=== PATIENT | female | born 1945 | race Caucasian/White ===

== ENCOUNTER 2017-01-02 11:08 | Outpatient (CLI) | payer MEDICARE, BC | END 2017-01-02 11:09 | disposition home or self-care (01) | DX: G47.33 Obstructive sleep apnea (adult) (pediatric) (principal); G47.00 Insomnia, unspecified | CPT/HCPCS: 99214; G0463 ==

== ENCOUNTER 2017-04-24 14:45 | Outpatient (CLI) | payer MEDICARE, BC | END 2017-04-24 14:46 | disposition home or self-care (01) | LOC: SC 14:45 | PROVIDERS: ATTEND Nurse Practitioner Family | DX: G47.33 Obstructive sleep apnea (adult) (pediatric) (principal) | CPT/HCPCS: 99214; G0463; 99212 ==

== ENCOUNTER 2017-06-12 09:34 | Outpatient (CLI) | payer MEDICARE, BC ==
[2017-06-12 18:51] LABS: BASOPHILS # (AUTO) 0.1 10^3/uL (0.0-0.1); EOSINOPHILS # (AUTO) 0.3 10^3/uL (0.0-0.7); EOSINOPHILS % (AUTO) 5.1 %; HCT - HEMATOCRIT 43.9 % (37.0-47.0); HGB - HEMOGLOBIN 14.5 g/dL (12.0-16.0); LYMPHOCYTES # (AUTO) 1.3 10^3/uL (1.5-3.5); LYMPHOCYTES % (AUTO) 18.9 %; MEAN CORPUSCULAR HEMOGLOBIN 31.4 pg (27.0-31.0); MEAN CORPUSCULAR VOLUME 95.2 fL (81.0-99.0); MEAN PLATELET VOLUME 8.2 fL (7.9-10.8); MONOCYTES # (AUTO) 0.4 10^3/uL (0.0-1.0); MONOCYTES % (AUTO) 6.4 %; NEUTROPHILS # (AUTO) 4.6 10^3/uL (1.5-6.6); NEUTROPHILS % (AUTO) 68.6 %; NUCLEATED RED BLOOD CELLS AUTO 0.2 /100WBC; RED BLOOD COUNT 4.61 10^6/uL (4.20-5.40); RED CELL DISTRIBUTION WIDTH 13.4 % (12.0-15.0); UNCORRECTED WHITE BLOOD COUNT 6.8 x10^3/uL; WHITE BLOOD COUNT 6.8 x10^3/uL (4.8-10.8)
[2017-06-12 19:18] LABS: ALBUMIN/GLOBULIN RATIO 1.3 (1.0-2.2); BILIRUBIN,TOTAL 0.6 mg/dL (0.2-1.0); BUN - BLOOD UREA NITROGEN 23 mg/dL (6-20); CALCIUM 9.5 mg/dL (8.5-10.3); CARBON DIOXIDE - CO2 28 mmol/L (21-32); CHLORIDE 97 mmol/L (101-111); CHOL/HDL RATIO 2.3 (<4.4); CHOLESTEROL 167 mg/dL; CREATININE 1.2 mg/dL (0.4-1.0); GFR - MDRD 44 (>89); GLUCOSE 259 mg/dL (70-100); HDL CHOLESTEROL 73 mg/dL; POTASSIUM 4.3 mmol/L (3.5-5.0); SODIUM 135 mmol/L (135-145); TOTAL PROTEIN 6.8 g/dL (6.7-8.2); TRIGLYCERIDES 114 mg/dL; VLDL CHOLESTEROL 23 mg/dL
[2017-06-12 20:15] LABS: HEMOGLOBIN A1C 1.5 g/dL
== END 2017-06-12 09:35 | disposition home or self-care (01) ==
LOC: LAB.F 09:34
PROVIDERS: ATTEND Physician Assistant Medical
DX: E11.65 Type 2 diabetes mellitus with hyperglycemia (principal); Z51.81 Encounter for therapeutic drug level monitoring
CPT/HCPCS: 36415; 80053; 80061; 83036; 85025

== ENCOUNTER 2017-06-12 13:42 | Outpatient (CLI) | payer MEDICARE, BC | END 2017-06-12 13:43 | disposition home or self-care (01) | LOC: SC 13:42 | PROVIDERS: ATTEND Nurse Practitioner Family | DX: G47.33 Obstructive sleep apnea (adult) (pediatric) (principal); E11.65 Type 2 diabetes mellitus with hyperglycemia; Z51.81 Encounter for therapeutic drug level monitoring | CPT/HCPCS: 36415; 80053; 80061; 83036; 85025; 99214; G0463; 99212 ==

== ENCOUNTER 2017-07-12 13:47 | Outpatient (CLI) | payer MEDICARE, BC | END 2017-07-12 13:48 | disposition home or self-care (01) | LOC: SC 13:47 | PROVIDERS: ATTEND Nurse Practitioner Family | DX: G47.33 Obstructive sleep apnea (adult) (pediatric) (principal) | CPT/HCPCS: 99214; G0463; 99212 ==

== ENCOUNTER 2017-10-11 09:19 | Outpatient (CLI) | payer MEDICARE, BC ==
[2017-10-11 17:52] LABS: CALCIUM 9.2 mg/dL (8.5-10.3); CREATININE 1.1 mg/dL (0.4-1.0)
[2017-10-11 18:23] LABS: HB2 TOTAL 15.6 g/dL; HEMOGLOBIN A1C 1.11 g/dL; HEMOGLOBIN A1C % 8.7 % (4.6-6.2)
== END 2017-10-11 09:20 | disposition home or self-care (01) ==
LOC: LAB.F 09:19
PROVIDERS: ATTEND Physician Assistant Medical
DX: Z51.81 Encounter for therapeutic drug level monitoring (principal); E11.65 Type 2 diabetes mellitus with hyperglycemia
CPT/HCPCS: 36415; 80048; 83036

== ENCOUNTER 2017-10-18 11:28 | Outpatient (CLI) | payer MEDICARE, BC | END 2017-10-18 11:29 | disposition home or self-care (01) | LOC: SC 11:28 | PROVIDERS: ATTEND Nurse Practitioner Family | DX: G47.33 Obstructive sleep apnea (adult) (pediatric) (principal) | CPT/HCPCS: 99214; G0463; 99212 ==

== ENCOUNTER 2017-12-19 14:45 | Outpatient (CLI) | payer MEDICARE, BC ==
[2017-12-19 17:49] LABS: BASOPHILS # (AUTO) 0.1 10^3/uL (0.0-0.1); BASOPHILS % (AUTO) 1.1 %; EOSINOPHILS # (AUTO) 0.5 10^3/uL (0.0-0.7); EOSINOPHILS % (AUTO) 7.3 %; HGB - HEMOGLOBIN 14.1 g/dL (12.0-16.0); LYMPHOCYTES # (AUTO) 1.4 10^3/uL (1.5-3.5); LYMPHOCYTES % (AUTO) 20.6 %; MEAN CORPUSCULAR VOLUME 93.9 fL (81.0-99.0); MEAN PLATELET VOLUME 7.8 fL (7.9-10.8); MONOCYTES # (AUTO) 0.4 10^3/uL (0.0-1.0); MONOCYTES % (AUTO) 5.9 %; NEUTROPHILS # (AUTO) 4.3 10^3/uL (1.5-6.6); NEUTROPHILS % (AUTO) 65.1 %; PLT - PLATELET COUNT 223 10^3/uL (130-450); RED BLOOD COUNT 4.54 10^6/uL (4.20-5.40); RED CELL DISTRIBUTION WIDTH 13.2 % (12.0-15.0); WHITE BLOOD COUNT 6.6 x10^3/uL (4.8-10.8)
[2017-12-19 17:52] LABS: CALCIUM 9.1 mg/dL (8.5-10.3)
[2017-12-19 17:58] LABS: HB2 TOTAL 15.3 g/dL; HEMOGLOBIN A1C 1.25 g/dL; HEMOGLOBIN A1C % 9.6 % (4.6-6.2)
== END 2017-12-19 14:46 | disposition home or self-care (01) ==
LOC: LAB.F 14:45
PROVIDERS: ATTEND Physician Assistant Medical
DX: E11.9 Type 2 diabetes mellitus without complications (principal); Z51.81 Encounter for therapeutic drug level monitoring
CPT/HCPCS: 36415; 80048; 83036; 85025

== ENCOUNTER 2018-01-02 14:47 | Outpatient (CLI) | payer MEDICARE, BC | END 2018-01-02 14:48 | disposition home or self-care (01) | LOC: SC 14:47 | PROVIDERS: ATTEND Nurse Practitioner Family | DX: G47.33 Obstructive sleep apnea (adult) (pediatric) (principal) | CPT/HCPCS: 99214; G0463; 99212 ==

== ENCOUNTER 2018-02-05 06:08 | Day surgery (SDC) | payer MEDICARE, BC ==
[2018-02-05] MEDS ORDERED: LACTATED RINGERS 1,000 ML IV ONE (06:50)
[2018-02-05] MEDS ORDERED: PROPOFOL 200 MG/20 ML VIAL IVP ONE (08:05)
[2018-02-05] MEDS ORDERED: LIDOCAINE-MPF 2% 5 ML VIAL IM ONE (08:05)
[2018-02-05 08:59] VITALS: BP 116/62
== END 2018-02-05 06:09 | disposition home or self-care (01) ==
LOC: SDS 06:08
PROVIDERS: ATTEND Surgery
PROC: 0DBP8ZX Excision of Rectum, Via Natural or Artificial Opening Endoscopic, Diagnostic (ICD-10-PCS; principal; 2018-02-05 07:30)
DX: Z12.11 Encounter for screening for malignant neoplasm of colon (principal); K62.1 Rectal polyp; K57.30 Diverticulosis of large intestine without perforation or abscess without bleeding; K64.8 Other hemorrhoids; E11.9 Type 2 diabetes mellitus without complications; Z86.718 Personal history of other venous thrombosis and embolism; Z79.01 Long term (current) use of anticoagulants; I10 Essential (primary) hypertension; Z79.84 Long term (current) use of oral hypoglycemic drugs; Z87.891 Personal history of nicotine dependence
CPT/HCPCS: 45380; J7120; 88305

== ENCOUNTER 2018-03-06 13:32 | Outpatient (CLI) | END 2018-03-06 13:33 | disposition home or self-care (01) | CPT/HCPCS: 99214; G0463 ==

== ENCOUNTER 2018-03-13 15:06 | Outpatient (CLI) | payer MEDICARE, BC ==
--- NOTE | 2018-03-14 14:49 | DEXA Report ---
Procedure Date: 03/13/2018 Accession Number: [id number] / [id number] Procedure: DEX - Dexa Spine and/or Hip CPT Code: FULL RESULT: EXAM: Dexa Spine and/or Hip DATE: 03/13/2018 3:54 PM CLINICAL HISTORY: SCREENING FOR OSTEOPOROSIS TECHNIQUE: Dual energy x-ray absorptiometry (DXA) was performed on a [employer] System. Regions measured are the AP Spine, femoral neck, and if needed forearm. COMPARISON: None. In accordance with the International Society for Clinical Densitometry (ISCD) guidelines, data from previous exams may be reanalyzed using current recommendations and techniques. This is done to allow a more accurate basis for comparison with the current study. FINDINGS: The data for the lumbar spine is as follows: BMD (g/cm/cm) T-SCORE Z-SCORE REGION L1 1.226 0.8 1.3 L2 1.517 2.6 3.2 L3 1.558 3.0 3.5 L4 1.615 3.5 4.0 TOTAL 1.471 2.4 2.9 NOTE: All evaluable vertebrae are used for classification The data for the hip is as follows: BMD (g/cm/cm) T-SCORE Z-SCORE REGION Neck 0.887 -1.1 -0.1 TOTAL 1.008 0.0 0.7 NOTE: The femoral neck or total proximal femur, whichever is lowest, is used for classification. IMPRESSION: THE WHO CLASSIFICATION BASED ON THE INTERNATIONAL REFERENCE STANDARD IS OSTEOPENIA. THE FRACTURE RISK IS INCREASED.. RECOMMENDATION: Patients with diagnosis of osteoporosis or osteopenia should have regular bone mineral density assessment. For those eligible for Medicare, routine testing is allowed once every 2 years. Testing frequency can be increased for patients who have rapidly progressing disease or for those who are receiving medical therapy to restore bone mass. COMMENT: World Health Organization (WHO) definitions for osteoporosis and osteopenia: NORMAL BMD: T-score at -1.0 or higher, fracture risk is low OSTEOPENIA BMD: T-score between -1.0 and -2.5, fracture risk is increased. OSTEOPOROSIS BMD: T-score at -2.5 or lower, fracture risk is high. National Osteoporosis Foundation recommends: 1. Obtain adequate dietary calcium (at least 1200 mg per day) and vitamin D (400-800 international units per day). 2. Participate, as appropriate, in regular weightbearing and muscle-strengthening exercise. 3. Avoid tobacco use and reduce alcohol and caffeine intake. 4. For more detailed information see the website at www.NOF.org.
== END 2018-03-13 15:07 | disposition home or self-care (01) ==
LOC: DI 15:06
PROVIDERS: ATTEND Physician Assistant Medical
DX: Z13.820 Encounter for screening for osteoporosis (principal); M85.88 Other specified disorders of bone density and structure, other site; Z78.0 Asymptomatic menopausal state
CPT/HCPCS: 77080

== ENCOUNTER 2018-03-13 15:07 | Outpatient (CLI) | payer MEDICARE, BC ==
--- NOTE | 2018-03-15 13:43 | Mammography Report ---
Procedure Date: 03/13/2018 Accession Number: [id number] / [id number] Procedure: AVELINO - Screening Mammo Dig Bilat CPT Code: FULL RESULT: EXAM: Screening Mammo Dig Bilat DATE: 03/13/2018 4:14 PM CLINICAL HISTORY: Routine screening TECHNIQUE: Bilateral CC, exaggerated CC and MLO views were obtained. COMPARISON: 10/15/2015, 03/14/2012, and 12/21/2010 FINDINGS: There are scattered fibroglandular densities. There is been no significant interval change. No suspicious masses, clustered microcalcifications, skin thickening, or regions of architectural distortion are identified. Scattered benign appearing calcifications as before. IMPRESSION: Benign findings RECOMMENDATION: Routine annual screening unless otherwise clinically indicated. BIRADS CATEGORY 2: Benign findings STANDARD QUALIFYING STATEMENTS: 1. This examination was reviewed with the aid of Computer-Aided Detection (CAD). 2. A negative or benign imaging report should not delay biopsy if clinically suspicious findings are present. Consider surgical consultation if warrented. More than 5% of cancers are not identified by imaging. 3. Dense breasts may obscure an underlying neoplasm.
== END 2018-03-13 15:08 | disposition home or self-care (01) ==
LOC: DI 15:07
PROVIDERS: ATTEND Physician Assistant Medical
DX: Z12.31 Encounter for screening mammogram for malignant neoplasm of breast (principal)
CPT/HCPCS: 77067

== ENCOUNTER 2018-03-14 08:00 | Outpatient (CLI) | payer MEDICARE, BC ==
[2018-03-14 19:15] LABS: HB2 TOTAL 15.6 g/dL; HEMOGLOBIN A1C 1.26 g/dL; HEMOGLOBIN A1C % 9.5 % (4.6-6.2)
== END 2018-03-14 08:01 ==
LOC: LAB.F 08:00
PROVIDERS: ATTEND Physician Assistant Medical
DX: E11.65 Type 2 diabetes mellitus with hyperglycemia (principal)
CPT/HCPCS: 36415; 83036

== ENCOUNTER 2018-04-25 12:03 | Outpatient (CLI) | payer MEDICARE, BC ==
[2018-04-25 18:03] LABS: HB2 TOTAL 14.9 g/dL; HEMOGLOBIN A1C 1.17 g/dL; HEMOGLOBIN A1C % 9.3 % (4.6-6.2)
== END 2018-04-25 12:04 | disposition home or self-care (01) ==
LOC: LAB.F 12:03
PROVIDERS: ATTEND Physician Assistant Medical
DX: E11.40 Type 2 diabetes mellitus with diabetic neuropathy, unspecified (principal)
CPT/HCPCS: 36415; 80048; 82043; 83036

== ENCOUNTER 2018-04-26 08:00 | Outpatient (CLI) | payer MEDICARE, BC | END 2018-04-26 08:01 | disposition home or self-care (01) | LOC: LAB.F 08:00 | PROVIDERS: ATTEND Physician Assistant Medical | DX: E11.40 Type 2 diabetes mellitus with diabetic neuropathy, unspecified (principal) | CPT/HCPCS: 82043 ==

== ENCOUNTER 2018-05-29 13:02 | Outpatient (CLI) | payer MEDICARE, BC | END 2018-05-29 13:03 | disposition home or self-care (01) | LOC: SC 13:02 | PROVIDERS: ATTEND Nurse Practitioner Family | DX: G47.33 Obstructive sleep apnea (adult) (pediatric) (principal) | CPT/HCPCS: 99214; G0463; 99212 ==

== ENCOUNTER 2018-07-10 13:26 | Outpatient (CLI) | payer MEDICARE, BC | END 2018-07-10 13:27 | disposition home or self-care (01) | LOC: SC 13:26 | PROVIDERS: ATTEND Nurse Practitioner Family | DX: G47.33 Obstructive sleep apnea (adult) (pediatric) (principal); R00.0 Tachycardia, unspecified | CPT/HCPCS: 99214; G0463; 99212 ==

== ENCOUNTER 2018-07-25 11:56 | Outpatient (CLI) | payer MEDICARE, BC ==
[2018-07-25 18:19] LABS: CALCIUM 8.8 mg/dL (8.5-10.3); CREATININE 1.1 mg/dL (0.4-1.0)
[2018-07-25 18:53] LABS: HB2 TOTAL 14.1 g/dL; HEMOGLOBIN A1C 1.03 g/dL; HEMOGLOBIN A1C % 8.8 % (4.6-6.2)
== END 2018-07-25 23:59 | disposition home or self-care (01) ==
LOC: LAB.F 11:56
PROVIDERS: ATTEND Physician Assistant Medical
DX: E11.40 Type 2 diabetes mellitus with diabetic neuropathy, unspecified (principal)
CPT/HCPCS: 36415; 80048; 83036

== ENCOUNTER 2018-12-21 12:59 | Outpatient (CLI) | payer MEDICARE, BC ==
[2018-12-21 17:36] LABS: BUN - BLOOD UREA NITROGEN 34 mg/dL (6-20); CALCIUM 9.7 mg/dL (8.5-10.3); CARBON DIOXIDE - CO2 27 mmol/L (21-32); CHLORIDE 99 mmol/L (101-111); CHOL/HDL RATIO 2.6 (<4.4); CHOLESTEROL 181 mg/dL; CREATININE 1.1 mg/dL (0.4-1.0); GFR - MDRD 49 (>89); GLUCOSE 242 mg/dL (70-100); HDL CHOLESTEROL 69 mg/dL; LDL CHOLESTEROL,CALCULATED 88 mg/dL; LDL/HDL RATIO 1.3 (<4.4); SODIUM 135 mmol/L (135-145); VLDL CHOLESTEROL 24 mg/dL
[2018-12-21 17:46] LABS: HB2 TOTAL 15.5 g/dL; HEMOGLOBIN A1C 1.42 g/dL; HEMOGLOBIN A1C % 10.5 % (4.6-6.2)
== END 2018-12-21 13:00 | disposition home or self-care (01) ==
LOC: LAB.F 12:59
PROVIDERS: ATTEND Physician Assistant Medical
DX: E11.42 Type 2 diabetes mellitus with diabetic polyneuropathy (principal)
CPT/HCPCS: 36415; 80048; 80061; 82043; 83036; 83721

== ENCOUNTER 2019-01-16 12:46 | Outpatient (CLI) | payer MEDICARE, BC | END 2019-01-16 12:47 | disposition home or self-care (01) | LOC: SC 12:46 | PROVIDERS: ATTEND Nurse Practitioner Family | DX: G47.33 Obstructive sleep apnea (adult) (pediatric) (principal) | CPT/HCPCS: 99214; G0463; 99212 ==

== ENCOUNTER 2019-04-15 09:13 | Outpatient (CLI) | payer MEDICARE, BC ==
[2019-04-15 17:47] LABS: BASOPHILS # (AUTO) 0.1 10^3/uL (0.0-0.1); EOSINOPHILS # (AUTO) 0.4 10^3/uL (0.0-0.7); EOSINOPHILS % (AUTO) 5.2 %; LYMPHOCYTES # (AUTO) 1.1 10^3/uL (1.5-3.5); LYMPHOCYTES % (AUTO) 13.7 %; MEAN CORPUSCULAR HEMOGLOBIN 31.5 pg (27.0-31.0); MEAN CORPUSCULAR HGB CONC 31.5 g/dL (32.0-36.0); MEAN PLATELET VOLUME 10.1 fL (7.9-10.8); MONOCYTES # (AUTO) 0.5 10^3/uL (0.0-1.0); NEUTROPHILS # (AUTO) 5.8 10^3/uL (1.5-6.6); NEUTROPHILS % (AUTO) 73.7 %; PLT - PLATELET COUNT 274 10^3/uL (130-450); RED BLOOD COUNT 4.44 10^6/uL (4.20-5.40); RED CELL DISTRIBUTION WIDTH 13.7 % (12.0-15.0); WHITE BLOOD COUNT 7.8 x10^3/uL (4.8-10.8)
[2019-04-15 19:18] LABS: AMYLASE 29 U/L (28-100); BUN - BLOOD UREA NITROGEN 21 mg/dL (6-20); CALCIUM 9.5 mg/dL (8.5-10.3); CARBON DIOXIDE - CO2 26 mmol/L (21-32); CHLORIDE 101 mmol/L (101-111); CHOL/HDL RATIO 2.4 (<4.4); CHOLESTEROL 175 mg/dL; CREATININE 1.2 mg/dL (0.4-1.0); GFR - MDRD 44 (>89); GLUCOSE 227 mg/dL (70-100); HDL CHOLESTEROL 73 mg/dL; LDL CHOLESTEROL,CALCULATED 79 mg/dL; LDL/HDL RATIO 1.1 (<4.4); LIPASE 24 U/L (22-51); SODIUM 137 mmol/L (135-145); VLDL CHOLESTEROL 23 mg/dL
[2019-04-15 19:22] LABS: HB2 TOTAL 14.8 g/dL; HEMOGLOBIN A1C 1.03 g/dL; HEMOGLOBIN A1C % 8.5 % (4.6-6.2)
== END 2019-04-15 09:14 | disposition home or self-care (01) ==
LOC: LAB.S 09:13
PROVIDERS: ATTEND Physician Assistant Medical
DX: E11.40 Type 2 diabetes mellitus with diabetic neuropathy, unspecified (principal); R68.81 Early satiety; R11.2 Nausea with vomiting, unspecified
CPT/HCPCS: 36415; 80048; 80061; 82150; 83036; 83690; 83721; 85025

== ENCOUNTER 2019-05-28 14:38 | Outpatient (CLI) | payer MEDICARE, BC ==
[2019-05-28 18:47] LABS: BASOPHILS # (AUTO) 0.1 10^3/uL (0.0-0.1); BASOPHILS % (AUTO) 0.7 %; EOSINOPHILS # (AUTO) 0.2 10^3/uL (0.0-0.7); EOSINOPHILS % (AUTO) 2.2 %; HGB - HEMOGLOBIN 14.4 g/dL (12.0-16.0); LYMPHOCYTES # (AUTO) 1.3 10^3/uL (1.5-3.5); LYMPHOCYTES % (AUTO) 14.3 %; MEAN CORPUSCULAR HEMOGLOBIN 32.1 pg (27.0-31.0); MEAN CORPUSCULAR HGB CONC 32.7 g/dL (32.0-36.0); MEAN CORPUSCULAR VOLUME 98.4 fL (81.0-99.0); MEAN PLATELET VOLUME 10.4 fL (7.9-10.8); MONOCYTES # (AUTO) 0.5 10^3/uL (0.0-1.0); MONOCYTES % (AUTO) 5.6 %; NEUTROPHILS % (AUTO) 76.8 %; PLT - PLATELET COUNT 315 10^3/uL (130-450); RED BLOOD COUNT 4.48 10^6/uL (4.20-5.40); WHITE BLOOD COUNT 9.1 x10^3/uL (4.8-10.8)
[2019-05-28 18:49] LABS: CALCIUM 10.1 mg/dL (8.5-10.3); CREATININE 1.6 mg/dL (0.4-1.0)
[2019-05-28 18:50] LABS: CREATININE,URINE 215.9 mg/dL; PROTEIN/CREATININE RATIO,URINE 0.2 (<=0.2)
== END 2019-05-28 14:39 | disposition home or self-care (01) ==
LOC: LAB.S 14:38
PROVIDERS: ATTEND Internal Medicine Nephrology
DX: N05.9 Unspecified nephritic syndrome with unspecified morphologic changes (principal); D70.9 Neutropenia, unspecified; D63.1 Anemia in chronic kidney disease; R80.9 Proteinuria, unspecified
CPT/HCPCS: 36415; 80048; 82570; 84156; 85025

== ENCOUNTER 2019-06-03 16:57 | Outpatient (CLI) | payer MEDICARE, BC ==
--- NOTE | 2019-06-04 09:18 | Ultrasound Report ---
Reason: STAGE 3 KIDNEY DISEASE Procedure Date: 06/03/2019 Accession Number: [id number] / [id number] Procedure: US - Retroperitoneal CPT Code: FULL RESULT: EXAM: RENAL ULTRASOUND EXAM DATE: 06/03/2019 05:50 PM. CLINICAL HISTORY: STAGE 3 KIDNEY DISEASE. COMPARISON: None. TECHNIQUE: Real-time scanning was performed with static images obtained. FINDINGS: Study limited by patient body habitus. Right Kidney: 9.8 x 4.9 x 6.1 cm. Grossly unremarkable echotexture with no stones, contour-deforming masses, or hydronephrosis. Left Kidney: 9.4 x 6.8 x 5.7 cm. Grossly unremarkable echotexture with no stones, contour-deforming masses, or hydronephrosis. Bladder: Bilateral jets are not seen. The prevoid bladder volume was 29 cc. The postvoid bladder volume was not assessed. Other: None. IMPRESSION: Limited normal renal ultrasound. RADIA
== END 2019-06-03 16:58 | disposition home or self-care (01) ==
LOC: DI 16:57
PROVIDERS: ATTEND Internal Medicine Nephrology
DX: N18.3 Chronic kidney disease, stage 3 (moderate) (principal)
CPT/HCPCS: 76770

== ENCOUNTER 2019-07-29 11:20 | Outpatient (CLI) | payer MEDICARE, BC ==
[2019-07-29 18:24] LABS: CALCIUM 9.2 mg/dL (8.5-10.3); CREATININE 1.2 mg/dL (0.4-1.0)
== END 2019-07-29 11:21 | disposition home or self-care (01) ==
LOC: LAB.S 11:20
PROVIDERS: ATTEND Internal Medicine Nephrology
DX: N05.9 Unspecified nephritic syndrome with unspecified morphologic changes (principal)
CPT/HCPCS: 36415; 80048

== ENCOUNTER 2019-08-28 10:45 | Outpatient (CLI) | payer MEDICARE, BC ==
[2019-08-28 17:09] LABS: BASOPHILS # (AUTO) 0.1 10^3/uL (0.0-0.1); BASOPHILS % (AUTO) 1.1 %; EOSINOPHILS # (AUTO) 0.3 10^3/uL (0.0-0.7); EOSINOPHILS % (AUTO) 5.1 %; HGB - HEMOGLOBIN 13.5 g/dL (12.0-16.0); LYMPHOCYTES # (AUTO) 1.6 10^3/uL (1.5-3.5); LYMPHOCYTES % (AUTO) 23.8 %; MEAN CORPUSCULAR HEMOGLOBIN 30.6 pg (27.0-31.0); MEAN CORPUSCULAR HGB CONC 31.5 g/dL (32.0-36.0); MEAN CORPUSCULAR VOLUME 97.1 fL (81.0-99.0); MEAN PLATELET VOLUME 10.6 fL (7.9-10.8); MONOCYTES # (AUTO) 0.4 10^3/uL (0.0-1.0); MONOCYTES % (AUTO) 5.9 %; NEUTROPHILS # (AUTO) 4.3 10^3/uL (1.5-6.6); NEUTROPHILS % (AUTO) 63.8 %; PLT - PLATELET COUNT 248 10^3/uL (130-450); RED BLOOD COUNT 4.41 10^6/uL (4.20-5.40); RED CELL DISTRIBUTION WIDTH 12.9 % (12.0-15.0); WHITE BLOOD COUNT 6.7 x10^3/uL (4.8-10.8)
[2019-08-28 17:57] LABS: CREATININE,URINE 180.5 mg/dL; MICROALBUM/CREATININE RATIO,UR 14.4 ug/mg (<30.0); MICROALBUMIN,URINE 2.6 mg/dL (0-300.0)
[2019-08-28 17:58] LABS: CALCIUM 9.2 mg/dL (8.5-10.3); CREATININE 1.1 mg/dL (0.4-1.0)
[2019-08-28 18:26] LABS: HB2 TOTAL 13.8 g/dL; HEMOGLOBIN A1C 0.89 g/dL; HEMOGLOBIN A1C % 8.1 % (4.6-6.2)
== END 2019-08-28 10:46 | disposition home or self-care (01) ==
LOC: LAB.S 10:45
PROVIDERS: ATTEND Physician Assistant Medical
DX: E11.40 Type 2 diabetes mellitus with diabetic neuropathy, unspecified (principal); Z79.01 Long term (current) use of anticoagulants; I48.91 Unspecified atrial fibrillation; Z51.81 Encounter for therapeutic drug level monitoring
CPT/HCPCS: 36415; 80048; 82043; 82570; 83036; 85025

== ENCOUNTER 2019-09-27 11:10 | Outpatient (CLI) | payer MEDICARE, BC ==
[2019-09-27 18:06] LABS: CALCIUM 9.7 mg/dL (8.5-10.3); CREATININE 1.2 mg/dL (0.4-1.0)
--- NOTE | 2019-09-28 06:45 | XRAY Report ---
Reason: PULMONARY NODULE Procedure Date: 09/27/2019 Accession Number: [id number] / [id number] Procedure: XRS - Chest 2 View X-Ray CPT Code: 00219 Final Report FULL RESULT: EXAM: CHEST RADIOGRAPHY EXAM DATE: 09/27/2019 11:22 AM. CLINICAL HISTORY: PULMONARY NODULE. COMPARISON: None. TECHNIQUE: 2 views. FINDINGS: The aorta is mildly tortuous. The heart size is normal. The lungs are clear. No pleural effusion or pneumothorax is seen. Mild degenerative changes are seen in the thoracic spine. IMPRESSION: No focal consolidation. RADIA
== END 2019-09-27 11:11 | disposition home or self-care (01) ==
LOC: DI.S 11:10
PROVIDERS: ATTEND Physician Assistant Medical
DX: R91.1 Solitary pulmonary nodule (principal); E11.40 Type 2 diabetes mellitus with diabetic neuropathy, unspecified
CPT/HCPCS: 36415; 71046; 80048

== ENCOUNTER 2019-12-04 08:59 | Outpatient (CLI) | payer MEDICARE, BC ==
[2019-12-04 17:39] LABS: HB2 TOTAL 14.8 g/dL; HEMOGLOBIN A1C 0.91 g/dL; HEMOGLOBIN A1C % 7.8 % (4.6-6.2)
[2019-12-04 17:40] LABS: CALCIUM 9.4 mg/dL (8.5-10.3); CREATININE 1.1 mg/dL (0.4-1.0)
== END 2019-12-04 09:00 | disposition home or self-care (01) ==
LOC: LAB.S 08:59
PROVIDERS: ATTEND Physician Assistant Medical
DX: E11.29 Type 2 diabetes mellitus with other diabetic kidney complication (principal)
CPT/HCPCS: 36415; 80048; 83036

== ENCOUNTER 2020-01-30 17:55 | Outpatient (CLI) | payer MEDICARE, BC | END 2020-01-30 17:56 | disposition home or self-care (01) | LOC: COV 17:55 | PROVIDERS: ATTEND Family Medicine | DX: J02.9 Acute pharyngitis, unspecified (principal) | CPT/HCPCS: 81599 ==

== ENCOUNTER 2020-03-31 10:42 | Outpatient (CLI) | payer MEDICARE, BC ==
[2020-03-31 15:05] LABS: CALCIUM 9.3 mg/dL (8.5-10.3); CREATININE 1.2 mg/dL (0.4-1.0)
[2020-03-31 15:20] LABS: CREATININE,URINE 173.8 mg/dL; MICROALBUM/CREATININE RATIO,UR 16.1 ug/mg (<30.0); MICROALBUMIN,URINE 2.8 mg/dL (0-300.0)
[2020-03-31 15:53] LABS: HB2 TOTAL 14.6 g/dL; HEMOGLOBIN A1C 0.96 g/dL; HEMOGLOBIN A1C % 8.2 % (4.6-6.2)
== END 2020-03-31 10:43 | disposition home or self-care (01) ==
LOC: LAB.S 10:42
PROVIDERS: ATTEND Physician Assistant
DX: E11.29 Type 2 diabetes mellitus with other diabetic kidney complication (principal)
CPT/HCPCS: 36415; 80048; 82043; 82570; 83036

== ENCOUNTER 2020-06-16 14:05 | Outpatient (CLI) | payer MEDICARE, BC | END 2020-06-16 23:59 | disposition home or self-care (01) | LOC: RT 14:05 | PROVIDERS: ATTEND Internal Medicine | DX: I48.0 Paroxysmal atrial fibrillation (principal) | CPT/HCPCS: 93005 ==

== ENCOUNTER 2020-07-20 15:03 | Outpatient (CLI) | payer MEDICARE, BC ==
[2020-07-20 20:34] LABS: HEMOGLOBIN A1c% 8.9 % (4.27-6.07)
== END 2020-07-20 15:04 | disposition home or self-care (01) ==
LOC: LAB.S 15:03
PROVIDERS: ATTEND Physician Assistant
DX: E11.29 Type 2 diabetes mellitus with other diabetic kidney complication (principal)
CPT/HCPCS: 36415; 83036

== ENCOUNTER 2020-08-08 08:00 | Outpatient (CLI) | payer MEDICARE, BC ==
--- NOTE | 2020-08-08 13:29 | XRAY Report ---
PROCEDURE: Ribs w/PA Chest LT INDICATIONS: CONTUSION OF LEFT FRONTAL WALL THORAX TECHNIQUE: 3 views of the left ribs were acquired, along with a single view chest. COMPARISON: 09.27.19 FINDINGS: Surgical changes and devices: None. Bones and chest wall: No fractures or dislocations. No suspicious bony lesions. Overlying soft tis sues appear unremarkable. Lungs and pleura: No pleural effusions or pneumothorax. Lungs appear clear. Mediastinum: Mediastinal contours appear normal. Heart size is normal. IMPRESSION: No acute fracture. No osseous lesion. If symptoms and/or clinical suspicion for pathology continue, f urther assessment with repeat plain films, or advanced imaging (e.g., CT, MRI, or bone scan) is recom mended for further assessment. Reviewed by: Cyndy Barahona MD on 08/08/2020 1:28 PM PST Approved by: Cyndy Barahona MD on 08/08/2020 1:28 PM PST Station ID: [id number]
== END 2020-08-08 23:59 ==
LOC: DI.S 08:00
PROVIDERS: ATTEND Emergency Medicine
DX: S20.212A Contusion of left front wall of thorax, initial encounter (principal)

== ENCOUNTER 2021-01-12 09:39 | Outpatient (CLI) | payer MEDICARE, BC ==
[2021-01-12 14:14] LABS: BASOPHILS # (AUTO) 0.1 10^3/uL (0.0-0.1); BASOPHILS % (AUTO) 0.7 %; EOSINOPHILS # (AUTO) 0.2 10^3/uL (0.0-0.7); EOSINOPHILS % (AUTO) 2.3 %; HCT - HEMATOCRIT 43.5 % (37.0-47.0); HGB - HEMOGLOBIN 13.9 g/dL (12.0-16.0); LYMPHOCYTES # (AUTO) 1.3 10^3/uL (1.5-3.5); LYMPHOCYTES % (AUTO) 13.9 %; MEAN CORPUSCULAR HEMOGLOBIN 31.3 pg (27.0-31.0); MEAN PLATELET VOLUME 10.4 fL (7.9-10.8); MONOCYTES # (AUTO) 0.6 10^3/uL (0.0-1.0); MONOCYTES % (AUTO) 6.1 %; NEUTROPHILS # (AUTO) 7.3 10^3/uL (1.5-6.6); NEUTROPHILS % (AUTO) 76.7 %; PLT - PLATELET COUNT 282 10^3/uL (130-450); RED BLOOD COUNT 4.44 10^6/uL (4.20-5.40); RED CELL DISTRIBUTION WIDTH 12.8 % (12.0-15.0); WHITE BLOOD COUNT 9.6 x10^3/uL (4.8-10.8)
[2021-01-12 15:27] LABS: ALBUMIN 3.8 g/dL (3.2-5.5); ALBUMIN/GLOBULIN RATIO 1.2 (1.0-2.2); ALKALINE PHOSPHATASE 104 IU/L (42-121); ALT ALANINE AMINOTRANSFERASE 22 IU/L (10-60); AST ASPARTATE AMINOTRANSFERASE 23 IU/L (10-42); BILIRUBIN,TOTAL 0.6 mg/dL (0.2-1.0); BUN - BLOOD UREA NITROGEN 62 mg/dL (6-20); CALCIUM 9.5 mg/dL (8.5-10.3); CARBON DIOXIDE - CO2 24 mmol/L (21-32); CHLORIDE 97 mmol/L (101-111); CHOL/HDL RATIO 1.9 (<4.4); CHOLESTEROL 138 mg/dL; CREATININE 1.6 mg/dL (0.4-1.0); GFR - MDRD 32 (>89); GLUCOSE 284 mg/dL (70-100); HDL CHOLESTEROL 74 mg/dL; LDL CHOLESTEROL,CALCULATED 38 mg/dL; LDL/HDL RATIO 0.5 (<4.4); POTASSIUM 5.1 mmol/L (3.5-5.0); SODIUM 133 mmol/L (135-145); TOTAL PROTEIN 7.1 g/dL (6.7-8.2); TRIGLYCERIDES 129 mg/dL; VLDL CHOLESTEROL 26 mg/dL
[2021-01-12 15:34] LABS: CREATININE,URINE 154.2 mg/dL; MICROALBUM/CREATININE RATIO,UR 12.3 ug/mg (<30.0); MICROALBUMIN,URINE 1.9 mg/dL (0-300.0)
[2021-01-12 15:35] LABS: THYROID STIMULATING HORMONE 2.77 uIU/mL (0.34-5.60)
[2021-01-12 19:32] LABS: ESTIMATED AVERAGE GLUCOSE 229 mg/dL (70-100); HEMOGLOBIN A1c% 9.6 % (4.27-6.07)
== END 2021-01-12 09:40 | disposition home or self-care (01) ==
LOC: LAB.S 09:39
PROVIDERS: ATTEND Physician Assistant
DX: I48.0 Paroxysmal atrial fibrillation (principal); R19.7 Diarrhea, unspecified; Z51.81 Encounter for therapeutic drug level monitoring; Z79.01 Long term (current) use of anticoagulants; E11.29 Type 2 diabetes mellitus with other diabetic kidney complication; I10 Essential (primary) hypertension; E11.42 Type 2 diabetes mellitus with diabetic polyneuropathy
CPT/HCPCS: 36415; 80053; 80061; 82043; 82570; 83036; 83721; 84443; 85025

== ENCOUNTER 2021-02-11 | Outpatient (CLI) | payer MEDICARE, BC | END 2021-02-11 09:34 | disposition home or self-care (01) | CPT/HCPCS: 93005 ==

== ENCOUNTER 2021-04-07 17:50 | Outpatient (CLI) | payer MEDICARE, BC | END 2021-04-07 17:51 | disposition critical access hospital (66) | LOC: EMS 17:50 | DX: R11.2 Nausea with vomiting, unspecified (principal); R53.1 Weakness; R06.02 Shortness of breath; R50.9 Fever, unspecified; R63.0 Anorexia | CPT/HCPCS: A0425; A0429 ==

== ENCOUNTER 2021-04-07 17:52 | Emergency (ER) | payer MEDICARE, BC ==
[2021-04-07] MEDS ORDERED: SODIUM CHLORIDE 0.9% 1,000 ML IV STA (18:14)
[2021-04-07] MEDS ORDERED: ONDANSETRON 4 MG/2 ML VIAL IVP STA (18:14)
[2021-04-07] MEDS ORDERED: FAMOTIDINE 20 MG/2 ML VIAL IVP STA (18:14)
--- NOTE | 2021-04-07 18:16 | ED Physician Documentation ---
PD HPI NVD - Stated complaint Stated Complaint: FLU LIKE SX - Chief complaint Chief Complaint: Abd Pain - History obtained from History obtained from: Patient - History of Present Illness Timing - onset: How many days ago (3) Timing - duration: Days (3) Timing - details: Abrupt onset, Still present Associated symptoms: Other (nausea with vomiting for 3 days. No diarrhea. Intermittent abd cramps but no consistent pain.). No: Fever, Abdominal pain, Chest pain Contributing factors: Diabetes. No: Sick contact, Bad food, Alcohol use Improved by: No: Vomiting Worsened by: Eating Similar symptoms before: No diagnosis (possible gastroparesis, with EGD and US/labs last year evaluating milder episodes.) Recently seen: Not recently seen, Other (COVID vaccines in October.) Review of Systems Constitutional: denies: Fever, Chills Nose: denies: Rhinorrhea / runny nose, Congestion Throat: denies: Sore throat Respiratory: reports: Cough (mild nonproductive) GI: reports: Nausea, Vomiting. denies: Abdominal Swelling, Constipation, Diarrhea : denies: Dysuria, Frequency Neurologic: reports: Generalized weakness. denies: Near syncope, Headache Endocrine: denies: Weight loss Immunocompromised: denies: Immunocompromised PD PAST MEDICAL HISTORY - Past Medical History Cardiovascular: Hypertension, Deep vein thrombosis Respiratory: None Endocrine/Autoimmune: Type 2 diabetes GI: None : None HEENT: None Psych: Depression Musculoskeletal: Osteoarthritis Derm: None - Past Surgical History General: Colonoscopy Ortho: Other - Present Medications Home Medications: Ambulatory Orders Medication Instructions Recorded Confirmed Lisinopril 20 mg PO DAILY 11/06/15 11/09/15 Metformin HCl 1,000 mg PO BID 11/06/15 11/09/15 Ropinirole HCl [Requip] 1 mg PO BID 11/06/15 11/09/15 Bupropion HCl [Wellbutrin Xl] 300 mg PO DAILY 11/09/15 11/09/15 Glipizide [Glipizide ER] 5 mg PO 02/02/18 Famotidine [Pepcid] 20 mg PO DAILY #15 tablet 04/07/21 Ondansetron Odt [Zofran] 4 mg TL Q6H PRN #10 tablet 04/07/21 - Allergies Allergies/Adverse Reactions: Allergies Allergy/AdvReac Type Severity Reaction Status Date / Time No Known Drug Allergies Allergy Verified 04/07/21 18:07 PD ED PE NORMAL - Vitals Vital signs reviewed: Yes - General General: Alert and oriented X 3, No acute distress, Well developed/nourished - HEENT HEENT: Pharynx benign. No: Moist mucous membranes - Neck Neck: Supple, no meningeal sign, No adenopathy - Cardiac Cardiac: RRR, No murmur - Respiratory Respiratory: Clear bilaterally - Abdomen Abdomen: Soft, Non tender, Non distended, No organomegaly. No: Normal bowel sounds (diminished) - Female Female : Deferred - Rectal Rectal: Deferred - Back Back: No CVA TTP - Derm Derm: Normal color, Warm and dry - Extremities Extremities: No tenderness to palpate, Normal ROM s pain, No edema, No calf tenderness / cord - Neuro Neuro: Alert and oriented X 3, No motor deficit, Normal speech Results - Vitals Vitals: Vital Signs - 24 hr 04/07/21 04/07/21 04/07/21 18:03 18:32 19:37 Temperature 37.6 C Heart Rate 83 81 84 Respiratory 20 16 14 Rate Blood Pressure 132/68 H 133/49 H 134/65 H O2 Saturation 97 97 98 Oxygen O2 Source Room air - Labs Labs: Laboratory Tests 04/07/21 04/07/21 04/07/21 18:30 18:30 18:30 WBC 14.2 H RBC 4.40 Hgb 13.9 Hct 42.2 MCV 95.9 MCH 31.6 H MCHC 32.9 RDW 12.4 Plt Count 207 MPV 9.1 Neut # (Auto) 12.8 H Lymph # (Auto) 0.7 L [place] # (Auto) 0.6 Eos # (Auto) 0.0 Baso # (Auto) 0.1 Absolute Nucleated RBC 0.00 Nucleated RBC % 0.0 Sodium 136 Potassium 3.9 Chloride 98 L Carbon Dioxide 27 Anion Gap 11.0 BUN 21 H Creatinine 1.0 Estimated GFR (MDRD) 54 L Glucose 268 H Lactic Acid 1.5 Calcium 9.3 Magnesium 1.8 Total Bilirubin 1.0 AST 14 ALT 17 Alkaline Phosphatase 67 Total Protein 7.4 Albumin 3.6 Globulin 3.8 Albumin/Globulin Ratio 0.9 L Lipase 19 L Serum Ketones NEGATIVE PD MEDICAL DECISION MAKING - ED course Complexity details: reviewed results, re-evaluated patient (feeling much better with fluids and meds. ), considered differential, d/w patient Departure - Departure Disposition: 01 Home, Self Care Clinical Impression: Dehydration, Gastroparesis diabeticorum Nausea and vomiting Qualifiers: Vomiting type: unspecified Vomiting Intractability: non-intractable Qualified Code(s): R11.2 - Nausea with vomiting, unspecified Condition: Stable Record reviewed to determine appropriate education?: Yes Instructions: ED Nausea Vomiting Follow-Up: GAUDENCIO MEHTA PA-C [Primary Care Provider] - Prescriptions: Famotidine [Pepcid] 20 mg PO DAILY #15 tablet Ondansetron Odt [Zofran] 4 mg TL Q6H PRN #10 tablet PRN Reason: Nausea / Vomiting Comments: This may be a mild stomach virus or could relate to some irritation of the stomach with your diabetes (gastroparesis). Often times once you rehydrate and stop the vomiting then things will stay improved. Small frequent fluids. Continue usual medications. O dancer Tyrone every 4-6 hours as needed for nausea. Your stomach is likely irritated from this so famotidine acid reducing medicine daily for a week or 2. Recheck if not consistently well over the next couple of days and return if worse again. Discharge Date/Time: 04/07/21 19:40
[2021-04-07 18:36] LABS: BASOPHILS # (AUTO) 0.1 10^3/uL (0.0-0.1); BASOPHILS % (AUTO) 0.4 %; EOSINOPHILS % (AUTO) 0.1 %; HCT - HEMATOCRIT 42.2 % (37.0-47.0); HGB - HEMOGLOBIN 13.9 g/dL (12.0-16.0); LYMPHOCYTES # (AUTO) 0.7 10^3/uL (1.5-3.5); LYMPHOCYTES % (AUTO) 4.6 %; MEAN CORPUSCULAR HEMOGLOBIN 31.6 pg (27.0-31.0); MEAN CORPUSCULAR HGB CONC 32.9 g/dL (32.0-36.0); MEAN CORPUSCULAR VOLUME 95.9 fL (81.0-99.0); MEAN PLATELET VOLUME 9.1 fL (7.9-10.8); MONOCYTES # (AUTO) 0.6 10^3/uL (0.0-1.0); MONOCYTES % (AUTO) 4.5 %; NEUTROPHILS # (AUTO) 12.8 10^3/uL (1.5-6.6); NEUTROPHILS % (AUTO) 89.8 %; PLT - PLATELET COUNT 207 10^3/uL (130-450); RED CELL DISTRIBUTION WIDTH 12.4 % (12.0-15.0); WHITE BLOOD COUNT 14.2 x10^3/uL (4.8-10.8)
[2021-04-07 18:53] LABS: ALBUMIN 3.6 g/dL (3.2-5.5); ALBUMIN/GLOBULIN RATIO 0.9 (1.0-2.2); ALKALINE PHOSPHATASE 67 IU/L (42-121); ALT ALANINE AMINOTRANSFERASE 17 IU/L (10-60); AST ASPARTATE AMINOTRANSFERASE 14 IU/L (10-42); BUN - BLOOD UREA NITROGEN 21 mg/dL (6-20); CALCIUM 9.3 mg/dL (8.5-10.3); CARBON DIOXIDE - CO2 27 mmol/L (21-32); CHLORIDE 98 mmol/L (101-111); GFR - MDRD 54 (>89); GLUCOSE 268 mg/dL (70-100); LIPASE 19 U/L (22-51); MAGNESIUM 1.8 mg/dL (1.7-2.8); POTASSIUM 3.9 mmol/L (3.5-5.0); SODIUM 136 mmol/L (135-145); TOTAL PROTEIN 7.4 g/dL (6.7-8.2)
[2021-04-07 19:00] LABS: KETONES, SERUM (ACETEST) NEGATIVE (NEGATIVE)
[2021-04-07] MEDS ORDERED: ONDANSETRON ODT 4 MG Prepack 2 TL PRN (19:13)
[2021-04-07] MEDS ORDERED: METOCLOPRAMIDE 10 MG/2 ML VIAL IVP STA (19:13)
[2021-04-07 19:38] VITALS: BP 134/65
== END 2021-04-07 19:40 | disposition home or self-care (01) ==
LOC: EDUNIT# → ED 17:52
DX: E86.0 Dehydration (principal); E11.43 Type 2 diabetes mellitus with diabetic autonomic (poly)neuropathy; K31.84 Gastroparesis; Z79.84 Long term (current) use of oral hypoglycemic drugs; R11.2 Nausea with vomiting, unspecified; I10 Essential (primary) hypertension
CPT/HCPCS: 36415; 80053; 82009; 83605; 83690; 83735; 85025; 96361; 96374; 96375; 99283; J2765

== ENCOUNTER 2021-05-07 18:06 | Outpatient (CLI) | payer MEDICARE, BC ==
[2021-05-07 20:15] LABS: CREATININE 1.2 mg/dL (0.4-1.0); POTASSIUM 4.1 mmol/L (3.5-5.0)
[2021-05-07 20:21] LABS: ESTIMATED AVERAGE GLUCOSE 163 mg/dL (70-100); HEMOGLOBIN A1c% 7.3 % (4.27-6.07)
== END 2021-05-07 18:07 | disposition home or self-care (01) ==
LOC: LAB.S 18:06
PROVIDERS: ATTEND Physician Assistant
DX: E11.29 Type 2 diabetes mellitus with other diabetic kidney complication (principal)
CPT/HCPCS: 36415; 80048; 83036